=== PATIENT | female | born 2000 | race Caucasian/White ===

== ENCOUNTER 2020-06-02 16:26 | Outpatient (CLI) | payer OTHER, SELFPAY ==
--- NOTE | ~2020-06-02 | XR_ITS ---
XR foot LT min 3V 06/02/2020 16:59 Indication: Closed fracture of the talus Procedure: 4 views of the left with Comparison: No prior studies for comparison. Findings: Lisfranc joint intact. Mild-moderate polyarticular osteoarthritis. No acute fracture or tra umatic malalignment. Focal soft tissue abnormality. No radiopaque foreign bodies. Impression: 1: No acute bone or joint abnormality. 2: Mild-moderate polyarticular osteoarthritis. Reviewed, dictated and finalized at location A. Impression: 1: No acute bone or joint abnormality. 2: Mild-moderate polyarticular osteoarthritis.
== END 2020-06-02 16:27 | disposition home or self-care (01) ==
PROVIDERS: Visit Provider Podiatrist Foot & Ankle Surgery
DX: S92.115A Nondisplaced fracture of neck of left talus, initial encounter for closed fracture (principal); M19.072 Primary osteoarthritis, left ankle and foot
CPT/HCPCS: 73630

== ENCOUNTER 2020-06-18 10:28 | Outpatient (CLI) | payer OTHER, SELFPAY ==
--- NOTE | ~2020-06-18 | XR_ITS ---
EXAMINATION: XR foot LT min 3V DATE: 06/18/2020 10:53 INDICATION: Closed fracture of talus and third through fifth metatarsals. TECHNIQUE: 4 views of left foot were obtained. COMPARISON: Left foot radiographs 06/02/2020 FINDINGS: Bone alignment is normal. There are nondisplaced fractures of the necks of the third throug h fifth metatarsals. Periosteal new bone formation is noted at the necks of the fourth and fifth meta tarsals. Osteopenia is noted, which decreases sensitivity for fractures. Joint spaces are normal. IMPRESSION: 1. Healing nondisplaced fractures of the necks of the third-fifth metatarsals. Reviewed, dictated and finalized at location A.
== END 2020-06-18 10:29 | disposition home or self-care (01) ==
PROVIDERS: Visit Provider Podiatrist Foot & Ankle Surgery
DX: S92.335D Nondisplaced fracture of third metatarsal bone, left foot, subsequent encounter for fracture with routine healing (principal); S92.345D Nondisplaced fracture of fourth metatarsal bone, left foot, subsequent encounter for fracture with routine healing; S92.355D Nondisplaced fracture of fifth metatarsal bone, left foot, subsequent encounter for fracture with routine healing
CPT/HCPCS: 73630